=== PATIENT | male | born 1975 | race African-American/Black ===

== ENCOUNTER 2018-03-24 19:35 | Emergency (ER) | payer OTHER ==
[2018-03-24 20:09] LABS: ABS Basophils 0.1 10^3/ul (0-0.2); ABS Eosinophils 0.4 10^3/ul (0-0.6); ABS Lymphocytes 3.1 10^3/ul (1.0-4.8); ABS Monocytes 0.7 10^3/ul (0-0.8); ABS Neutrophils 2.9 10^3/ul (1.5-7.7); ABS Nucleated RBC 0 10^3/ul; Eosinophil % 5.7 % (0-6); Hematocrit 43 % (42-52); Hemoglobin 14.6 g/dl (14.0-18.0); Mean Corpuscular HGB Conc 34 g/dl (31-36); Mean Corpuscular Hemoglobin 28 pg (27-31); Mean Corpuscular Volume 80 fL (80-94); Mean Platelet Volume 9.5 um3 (7.4-10.4); Nucleated Red Blood Cells % 0.2; Platelet Count 168 10^3/ul (150-450); Red Blood Count 5.31 10^6/ul (4.0-5.4); Red Cell Distribution Width 14 % (10.5-15); White Blood Count 7.3 10^3/ul (3.5-10.8)
[2018-03-24 20:23] LABS: EGFR Non-African American 68.7 (>60)
--- NOTE | 2018-03-24 20:28 | RAD ---
INDICATION: Chest pain COMPARISON: None. TECHNIQUE: Single AP portable view of the chest was obtained. FINDINGS: Image quality is compromised due to the relative inferiority of a portable chest x-ray. The heart and mediastinum exhibit normal size and contour. The lungs are grossly clear. There is no evidence of a large pleural effusion. Visualized bones are normal for the patient's age. IMPRESSION: No radiographic evidence for acute cardiopulmonary abnormality on this portable chest x-ray.
[2018-03-24 20:31] LABS: Urine Appearance Clear; Urine Blood Negative (Negative); Urine Color Yellow; Urine Ketones Negative (Negative); Urine Protein Negative (Negative); Urine Urobilinogen Negative (Negative)
[2018-03-25 01:45] VITALS: BP 146/88
--- NOTE | 2018-03-26 02:42 | ED ---
Mamadou Leung Rebecca, scribed for Geovanna Khalil MD on 03/25/18 at 0115 . Progress - Progress Note Progress Note: Pt was signed out by Dr. Bautista, pending dispo, awaiting repeat troponin. Course/Dx - Course Course Of Treatment: Pt was signed out by Dr. Bautista, pending dispo, awaiting repeat troponin. Repeat troponin os 0.00, unchanged from previous. Pt will be D/ C with Dx of atypical chest pain. Understands and agrees. - Diagnoses Provider Diagnoses: Atypical chest pain Discharge - Sign-Out/Discharge Documenting (check all that apply): Discharge/Admit/Transfer - Discharge, Receiving Sign-Out Receiving patient FROM: Ezekiel Bautista - Discharge Plan Condition: Stable Disposition: HOME Patient Education Materials: Chest Pain (ED) Referrals: Doreen Vergara [Primary Care Provider] - 3 Days Additional Instructions: RETURN TO ED FOR ANY NEW OR WORSENING SYMPTOMS. The documentation as recorded by the Mamadou arevalo Rebecca accurately reflects the service I personally performed and the decisions made by Remi viveros Abdul, MD.
== END 2018-03-25 01:43 | disposition home or self-care (01) ==
LOC: ED 19:35
DX: R07.89 Other chest pain (principal)
CPT/HCPCS: 36415; 71045; 80053; 81003; 82550; 82553; 83605; 83735; 83880; 84443; 84484; 85025; 85652; 85730; 86140; 93005; 99285